=== PATIENT | male | born 1940 | race Caucasian/White ===

== ENCOUNTER 2023-02-19 06:30 | Day surgery (SDC) | payer MEDICARE, BC ==
[~2023-02-19] VITALS: Ht 176.5 cm; Wt 84.1 kg
[2023-02-19] MEDS ORDERED: PRED5DRO23 LEFTEYE (06:58)
[2023-02-19] MEDS ORDERED: SIMV-342 PO (06:58)
[2023-02-19] MEDS ORDERED: ACYC200C PO (06:58)
[2023-02-19] MEDS ORDERED: DORZ10DR32 RIGHTEYE (06:58)
[2023-02-19] MEDS ORDERED: TRAZ-251 PO (06:58)
[2023-02-19] MEDS ORDERED: AMLO10TA28 (06:58)
[2023-02-19] MEDS ORDERED: BRIM5DRO (06:58)
[2023-02-19] MEDS ORDERED: fentaNYL/PF 50MCG/1 ML 2ML syringe ONE (07:19)
[2023-02-19] MEDS ORDERED: MIDAZolam 1 MG/ML 5ML VIAL ONE (07:20)
[2023-02-19] MEDS ORDERED: LIDOcaine Viscous 15ml cup ONE (07:20)
[2023-02-19 08:45] VITALS: BP 125/70
[2023-02-19 08:55] VITALS: BP 112/71
[2023-02-19 09:05] VITALS: BP 117/66
[2023-02-19 09:15] VITALS: BP 116/70
== END 2023-02-19 09:20 | disposition home or self-care (01) ==
LOC: GI LAB 06:30
PROVIDERS: ATTEND Internal Medicine Gastroenterology
DX: R13.10 Dysphagia, unspecified (principal); K21.00 Gastro-esophageal reflux disease with esophagitis, without bleeding; K29.80 Duodenitis without bleeding; K29.70 Gastritis, unspecified, without bleeding; I10 Essential (primary) hypertension; E78.5 Hyperlipidemia, unspecified; J45.909 Unspecified asthma, uncomplicated; Z87.891 Personal history of nicotine dependence; Z79.899 Other long term (current) drug therapy
CPT/HCPCS: 43239; G0500; J2250; J3010; J7030; Z7512; 88305; 99152; A4620